=== PATIENT | male | born 1955 | race Caucasian/White ===

== ENCOUNTER → 2016-09-18 | Outpatient (CLI) | payer MEDICARE, OTHER ==
[~2016-09-18] MED LIST: AMOX500C2 PO; ASCO100T6 PO; ASP325T PO; ASP81TEC PO; ATOR80TA PO; B POLLEN; BEE POLLEN PO; BEE550CA PO; CALC-650 PO; CATHETER FLUSH 10 ML SYR IV PRN; CHOL200035 PO; CINN500C2 PO; CLOP75TA PO; Cinnamon PO; FURO20TA4 PO; GARL10002 PO; GARL200T PO; GINK120C PO; GINK60CA13 PO; Garlic PO; LOSA50TA6 PO; MTP25TSR PO; MULT-608; MULT-974 PO; MULT1CAP27 PO; NF-METANX PO; NF-VAL40T PO; OMEG1CAP51 PO; PANT40SU PO; PANT40TA PO; PNT40TEC; PNT40TEC PO; POTA2TAB15 PO; POTA75TA; POTA99TA4 PO; PRD20T PO; REGADENOSON 0.4 MG/5 ML SYR (LEXISCAN) IV ONE; RIVA20TA2 PO; ROSU10TA12 PO; SILD25TA; SOLI5TAB4 PO; SUPER B PO; TADA2.5T PO; TERB250T PO; VENL150C PO; VENL150C53 PO; VIT E PO; VITA100C15 PO; VITA100T6 PO; VITA150T PO; VITA80006 PO; Vitamin A PO; Vitamin C PO; Vitamin E PO; ZINC15TA2 PO; [UNRECOGNIZED DRUG - CODE]; calcium; cinnamon; vitamin a PO
[2016-09-18 09:23] VITALS: BP 137/87
--- NOTE | 2016-09-19 09:48 | STRESS TEST ---
PROCEDURE PHYSICIAN: FROILAN WORTHY EXERCISE MYOVIEW STRESS TEST REPORT DATE OF PROCEDURE: 09/18/2016 REFERRING PHYSICIAN: Dr. Arvin Landis INDICATION: Congestive heart failure. Baseline heart rate is 105, baseline blood pressure: 140/82. Baseline EKG: Sinus rhythm with no ischemic changes. SUMMARY: The patient was injected with 10.51 mCi of technetium 99 Myoview and the resting images were obtained. Then the patient started exercising with a baseline heart rate, blood pressure, EKG mentioned above. At minute 5 and 30 seconds, the patient was injected with 31.5 mCi of technetium 99 Myoview. The patient was able to finish a total of 6 minutes 30 seconds on standard Chuck protocol, achieving maximum heart rate of 152, which is 95% of maximum expected heart rate. At the peak exercise level, blood pressure was 182/66, EKG with very minimal nondiagnostic changes. During recovery, heart rate and blood pressure returned to baseline. EKG returned to baseline. The resting and stress images were reviewed and compared in the short axis, horizontal long axis, and vertical long axis views. Review of the images showed fixed defect involving the mid to apical anterior wall, anterior septum, true apex. SSS 27, SDS 0, TID value 0.96. On the gated images, the left ventricle appeared to be dilated with hypokinesia at the anterior wall, anterior apex, true apex, anterolateral wall. Calculated ejection fraction 40%. CONCLUSION: 1. Fair exercise tolerance a total of 6 minutes 30 seconds on standard Chuck protocol. Total 7 METs, achieving 95% of maximum expected heart rate. 2. Appropriate heart rate and blood pressure response to exercise. Returned to baseline during recovery. 3. Total infarction of the mid to apical anterior wall, true apex. No significant ischemia was noted. 4. Normal left ventricular size with hypokinesia at the anterior wall. Calculated ejection fraction 40%. Job ID: [id number] Dictated Date: 09/19/2016 08:07:36 Supervisor [employer] Date: 09/19/2016 09:43:12 / john
== END ==
LOC: CARD 08:10
PROVIDERS: ATTEND Physician Assistant
DX: I50.22 Chronic systolic (congestive) heart failure (principal); I25.10 Atherosclerotic heart disease of native coronary artery without angina pectoris; I10 Essential (primary) hypertension; E78.2 Mixed hyperlipidemia
CPT/HCPCS: 78452; 93017

== ENCOUNTER → 2016-09-27 | Outpatient (CLI) | payer MEDICARE, OTHER ==
[~2016-09-27] MED LIST changes: -CATHETER FLUSH 10 ML SYR IV PRN; -REGADENOSON 0.4 MG/5 ML SYR (LEXISCAN) IV ONE
--- OUTSIDE RECORDS SUMMARY | 2016-09-27 12:11 | XMS REPORT | Continuity of Care Document ---
Author Author [facility] Organization [facility] Address Unknown Phone Unavailable Allergies Active Description Code Type Severity Reaction Onset Reported/Identified Relationship to Patient Clinical Status Yes NKANo Known Allergies NKA Miscellaneous Allergy Unknown N/ A 08/05/2015 Medications Problems Date Dx Coded Attending Type Code Diagnosis Diagnosed By 03/03/2010 Ot 530.11 03/03/2010 Ot 553.3 03/03/2010 Ot 562.10 03/18/2011 Ot 327.23 03/18/2011 Ot 414.01 01/08/2013 FROILAN WORTHY MD Ot 272.4 01/08/2013 FROILAN WORTHY MD Ot 278.00 01/08/2013 FROILAN WORTHY MD Ot 288.60 01/08/2013 FROILAN WORTHY MD Ot 401.9 01/08/2013 FROILAN WORTHY MD Ot 412 01/08/2013 FROILAN WORTHY MD Ot 414.01 01/08/2013 FROILAN WORTHY MD Ot 428.0 01/08/2013 FROILAN WORTHY MD Ot 428.22 01/08/2013 FROILAN WORTHY MD Ot 433.10 01/08/2013 FROILAN WORTHY MD Ot 433.30 01/08/2013 FROILAN WORTHY MD Ot 780.4 01/08/2013 FROILAN WORTHY MD Ot 784.0 01/08/2013 FROILAN WORTHY MD Ot 786.50 01/08/2013 FROILAN WORTHY MD Ot V03.82 01/08/2013 FROILAN WORTHY MD Ot V45.82 01/08/2013 FROILAN WORTHY MD Ot V85.42 07/03/2013 GLENNA RODRIGUEZ, SHUBHAM Ot 785.6 10/01/2013 FROILAN WORTHY MD Ot 278.01 10/01/2013 FROILAN WORTHY MD Ot 327.23 10/01/2013 FROILAN WORTHY MD Ot 397.0 10/01/2013 DEACON RODRIGUEZ, BASHAR J Ot 412 10/01/2013 DEACON RODRIGUEZ, BASHAR J Ot 414.01 10/01/2013 DEACON RODRIGUEZ, BASHAR J Ot 424.0 10/01/2013 DEACON RODRIGUEZ, BASHAR J Ot 428.0 10/01/2013 DEACON RODRIGUEZ, BASHAR J Ot 428.22 10/01/2013 DEACON RODRIGUEZ, BASHAR J Ot 784.0 10/01/2013 DEACON RODRIGUEZ, BASHAR J Ot 786.50 10/01/2013 DEACON RODRIGUEZ, BASHAR J Ot V12.51 10/01/2013 DEACON RODRIGUEZ, BASHAR J Ot V13.01 10/01/2013 DEACON RODRIGUEZ, FROILAN J Ot V17.3 10/01/2013 DEACON RODRIGUEZ, FROILAN Curry Ot V45.82 10/01/2013 DEACON RODRIGUEZ, FROILAN Curry Ot V58.61 10/01/2013 DEACON RODRIGUEZ, FROILAN Curry Ot V58.69 10/01/2013 DEACON RODRIGUEZ, FROILAN Curry Ot V85.43 10/12/2013 HARDEEP MANZANARES MDSELENA Ot 571.8 10/12/2013 GLENNA RODRIGUEZ [facility] Ot 785.6 10/12/2013 HARDEEP MANZANARES MDSELENA Ot V12.55 10/15/2013 DEACON RODRIGUEZ, FROILAN Curry Ot 272.4 10/15/2013 DEACON RODRIGUEZ, FROILAN Curry Ot 278.00 10/15/2013 DEACON RODRIGUEZ, FROILAN J Ot 401.9 10/15/2013 DEACON RODRIGUEZ, BASHAR J Ot 412 10/15/2013 DEACON RODRIGUEZ, BASHAR J Ot 414.01 10/15/2013 DEACON RODRIGUEZ, BASHAR J Ot 496 10/15/2013 DEACON RODRIGUEZ, ROBERTHAR J Ot 786.50 10/15/2013 DEACON RODRIGUEZ, FROILAN J Ot V12.51 10/15/2013 DEACON RODRIGUEZ, ROBERTHAR J Ot V15.82 10/15/2013 DEACON RODRIGUEZ, BASHAR J Ot V45.82 10/15/2013 EDACON RODRIGUEZ, ROBERTHAR J Ot V58.61 10/15/2013 DEACON RODRIGUEZ, ROBERTHAR J Ot V58.69 10/15/2013 DEACON RODRIGUEZ, BASHAR J Ot V85.43 01/27/2014 [facility] 278.01 01/27/2014 GLENNA RODRIGUEZ, [facility] Ot 414.00 01/27/2014 GLENNA RODRIGUEZ, [facility] Ot 571.8 01/27/2014 GLENNA RODRIGUEZ, [facility] Ot 785.6 01/27/2014 GLENNA RODRIGUEZ, [facility] Ot V12.55 01/27/2014 GLENNA RODRIGUEZ, [facility] Ot V58.69 01/27/2014 GLENNA RODRIGUEZ, [facility] Ot V85.43 05/26/2015 Ot 414.00 05/26/2015 Ot 428.0 05/26/2015 Ot 414.00 05/26/2015 Ot 428.0 05/26/2015 Ot 428.0 05/26/2015 Ot 401.9 05/26/2015 Ot 414.00 05/26/2015 Ot 428.0 05/26/2015 Ot 401.9 05/26/2015 Ot 414.00 05/26/2015 Ot 428.0 05/26/2015 GLENNA RODRIGUEZ, [facility] Ot 571.8 05/26/2015 GLENNA RODRIGUEZ, [facility] Ot 785.6 05/26/2015 GLENNA RODRIGUEZ, [facility] Ot V12.55 05/26/2015 Ot 278.01 05/26/2015 Ot 414.00 05/26/2015 Ot 571.8 05/26/2015 Ot 785.6 05/26/2015 Ot V12.55 05/26/2015 Ot V58.69 05/26/2015 Ot V85.43 06/16/2015 FROILAN WORTHY MD Ot E78.5 06/16/2015 DEACON RODRIGUEZ, FROILAN Curry Ot I10 06/16/2015 FROILAN WORTHY MD Ot I50.9 06/16/2015 FROILAN WORTHY MD Ot R06.02 08/05/2015 RAFIQ AUGUSTINE DO Ot K62.5 09/19/2016 VIET HENRY Ot E78.2 MIXED HYPERLIPIDEMIA 09/19/2016 VEIT HENRY Ot I10 ESSENTIAL (PRIMARY) HYPERTENSION 09/19/2016 VIET HENRY Ot I25.10 ATHSCL HEART DISEASE OF [place] CORONARY 09/19/2016 VIET HENRY Ot I50.22 CHRONIC SYSTOLIC (CONGESTIVE) HEART FAIL Procedures Results Encounters ACCT No. Visit Date/Time Discharge Status Pt. Type Provider Facility Loc./Unit Complaint [id number] 08/05/2015 11:58:00 2014 15:40:00 DIS Outpatient RAFIQ AUGUSTINE DO [facility] SDC [id number] 05/26/2015 09:43:00 2014 23:59:59 CLS Outpatient FROILAN WORTHY MD [facility] CARD [id number] 10/29/2013 13:07:00 2013 00:01:00 DIS Outpatient SHUBHAM MANZANARES MD [facility] ONC [id number] 10/15/2013 08:07:00 2013 15:10:00 DIS Outpatient FROILAN WORTHY MD [facility] CATH [id number] 09/29/2013 09:30:00 2013 00:01:00 DIS Outpatient SHUBHAM MANZANARES MD [facility] ONC [id number] 09/29/2013 13:40:00 2013 15:10:00 DIS Outpatient FROILAN WORTHY MD [facility] CATH [id number] 05/13/2013 13:23:00 2012 00:01:00 DIS Outpatient SHUBHAM MANZANARES MD [facility] ONC [id number] 05/09/2013 08:44:00 2012 23:59:59 CLS Outpatient SHUBHAM MANZANARES MD [facility] RAD [id number] 01/07/2013 19:15:00 2012 18:50:00 DIS Inpatient FROILAN WORTHY MD [facility] 4TH [id number] 09/18/2016 08:10:00 ACT Outpatient VIET CALLES [facility] CARD HTN,CHF [id number] 08/03/2015 05:42:00 ACT Outpatient RAFIQ AUGUSTINE DO [facility] PREOP [id number] 01/28/2014 00:00:00 Document Registration [id number] 06/19/2012 07:40:00 Document Registration [id number] 06/18/2012 08:35:00 Document Registration [id number] 03/21/2011 13:29:00 Document Registration [id number] 03/17/2011 21:00:00 Document Registration [id number] 01/23/2011 07:24:00 Document Registration [id number] 06/24/2010 09:31:00 Document Registration [id number] 03/03/2010 07:35:00 Document Registration
--- NOTE | 2016-09-27 16:49 | Diagnostic Imaging Report ---
INDICATION: Irritability, history of blood clots and myocardial infarct. FINDINGS: The heart size within the upper limits of normal. There is no vascular congestion. No edema, pneumonia, effusion or pneumothorax. Hilar and mediastinal contours stable. No acute finding. IMPRESSION: Stable chronic findings. No acute abnormality. Dictated by: Dictated on workstation # [id number]
== END ==
LOC: RAD 12:08
PROVIDERS: ATTEND Internal Medicine Critical Care Medicine
DX: R06.02 Shortness of breath (principal); G47.33 Obstructive sleep apnea (adult) (pediatric); E66.01 Morbid (severe) obesity due to excess calories
CPT/HCPCS: 71020

== ENCOUNTER → 2016-10-04 | Outpatient (CLI) | payer MEDICARE, OTHER | LOC: RT 12:58 | PROVIDERS: ATTEND Internal Medicine Critical Care Medicine | DX: R06.02 Shortness of breath (principal); G47.33 Obstructive sleep apnea (adult) (pediatric); E66.01 Morbid (severe) obesity due to excess calories | CPT/HCPCS: 94060; 94726; 94729 ==

== ENCOUNTER 2016-11-14 20:45 | Outpatient (CLI) | payer MEDICARE, OTHER | END 2016-11-15 06:50 | disposition home or self-care (01) | LOC: SLEEP 20:45 | PROVIDERS: ATTEND Nurse Practitioner Family | DX: G47.33 Obstructive sleep apnea (adult) (pediatric) (principal) | CPT/HCPCS: 95811 ==

== ENCOUNTER → 2017-01-12 | Outpatient (CLI) | payer MEDICARE, OTHER | LOC: CARD 09:27 | PROVIDERS: ATTEND Internal Medicine Cardiovascular Disease | DX: I49.8 Other specified cardiac arrhythmias (principal); I25.10 Atherosclerotic heart disease of native coronary artery without angina pectoris; I10 Essential (primary) hypertension; E78.2 Mixed hyperlipidemia; R00.2 Palpitations | CPT/HCPCS: 93225; 93226 ==

== ENCOUNTER 2017-02-01 20:45 | Outpatient (CLI) | payer MEDICARE, OTHER | END 2017-02-02 06:21 | disposition home or self-care (01) | LOC: SLEEP 20:45 | PROVIDERS: ATTEND Nurse Practitioner Family | DX: G47.10 Hypersomnia, unspecified (principal); G47.33 Obstructive sleep apnea (adult) (pediatric); E66.01 Morbid (severe) obesity due to excess calories; I21.3 ST elevation (STEMI) myocardial infarction of unspecified site; R00.2 Palpitations; G47.50 Parasomnia, unspecified | CPT/HCPCS: 95811 ==

== ENCOUNTER → 2019-06-09 | Outpatient (CLI) | payer MEDICARE, OTHER | LOC: CARD 09:22 | PROVIDERS: ATTEND Physician Assistant | DX: I07.1 Rheumatic tricuspid insufficiency (principal); I11.0 Hypertensive heart disease with heart failure; I50.9 Heart failure, unspecified; I25.10 Atherosclerotic heart disease of native coronary artery without angina pectoris | CPT/HCPCS: 93306 ==

== ENCOUNTER → 2019-06-11 | Outpatient (CLI) | payer MEDICARE, OTHER ==
[~2019-06-11] VITALS: Ht 178 cm; Wt 170.0 kg
[~2019-06-11] MED LIST changes: +CATHETER FLUSH 10 ML SYR IV PRN
[2019-06-11 09:51] VITALS: BP 124/87
[2019-06-11 10:03] VITALS: BP 156/98
--- NOTE | 2019-06-11 21:31 | STRESS TEST ---
DATE OF SERVICE: 06/11/2019 EXERCISE MYOVIEW STRESS TEST Baseline heart rate is 64. Baseline blood pressure is 124/87. Baseline EKG is sinus rhythm with no ischemic changes. In summary, the patient was injected with 10.11 mCi of technetium-99 Myoview and the resting images were obtained. Then, the patient started exercising with a baseline heart rate, blood pressure and EKG mentioned above, was able to exercise for 5 minutes 30 seconds on standard Chuck protocol. With peak exercise level, blood pressure was 184/94. EKG was showing nondiagnostic changes. During recovery, heart rate and blood pressure returned to baseline, EKG returned to baseline. The resting and stress images were reviewed and compared in the short axis, horizontal long axis, and vertical long axis views. Review of the images showed total infarction of the mid to apical anterior wall, true apex and inferoapical segment. SSS is 23, SDS 1, TID value 1.08. On the gated images, the left ventricle is normal in size with aneurysmal apex. Calculated ejection fraction 38%. CONCLUSION: 1. Fair exercise tolerance for a total of 5 minutes 30 seconds on standard Chuck protocol, total of 7.1 METS achieving 85% of maximum expected heart rate. 2. Nondiagnostic EKG changes with exercise returned to baseline during recovery. 3. Total infarction of the whole mid to apical anterior wall, true apex and inferoapical segment. 4. Normal left ventricular size with dyskinesia of the apex. Calculated ejection fraction 38%. Job ID: [id number] DocumentID: [id number] Dictated Date: 06/11/2019 16:12:21 Structural Steel Trades Worker Date: 06/11/2019 21:30:50 Dictated By: FROILAN WORTHY MD
== END ==
LOC: CARD 08:18
PROVIDERS: ATTEND Physician Assistant
DX: I21.9 Acute myocardial infarction, unspecified (principal); I11.0 Hypertensive heart disease with heart failure; I50.9 Heart failure, unspecified; I25.10 Atherosclerotic heart disease of native coronary artery without angina pectoris
CPT/HCPCS: 78452; 93017

== ENCOUNTER → 2020-03-23 | Outpatient (CLI) | payer MEDICARE, OTHER ==
[~2020-03-23] MED LIST changes: -CATHETER FLUSH 10 ML SYR IV PRN
== END ==
LOC: RAD 07:35
PROVIDERS: ATTEND Family Medicine
DX: Z53.9 Procedure and treatment not carried out, unspecified reason (principal); I63.9 Cerebral infarction, unspecified

== ENCOUNTER → 2021-05-30 | Outpatient (CLI) | payer MEDICARE, OTHER ==
[~2021-05-30] VITALS: Ht 173 cm; Wt 168.0 kg
[~2021-05-30] MED LIST changes: +REGADENOSON 0.4 MG/5 ML SYR (LEXISCAN) IV ONE
[2021-05-30] MEDS: CATHETER FLUSH 10 ML SYR IV PRN ×2 (08:35→10:00)
[2021-05-30 09:58] VITALS: BP 118/61
--- NOTE | 2021-05-30 12:57 | Cardiology Stress Test Report ---
Stress Test Report Date of Procedure/Referring: Date of Procedure: May 30, 2021 PCP Froilan Baker MD Admitting Physician Arvin Landis DO Indications: CHF Baseline Heart Rate: 52 Baseline Blood Pressure: Blood Pressure Systolic: 118 Blood Pressure Diastolic: 61 Baseline Vitals Vital Signs Date Time Temp Pulse Resp B/P (MAP) Pulse Ox O2 Delivery O2 Flow Rate FiO2 05/30/21 09:58 51 16 118/61 (80) 97 Room Air Baseline EKG: Baseline EKG: NSR Summary After explaining the procedure to the patient, he signed a consent and then brought to the stress nuclear laboratory. Patient received 0.4 mg Lexiscan for stress test, ECG, heart rate and blood pressure were monitored continuously. Resting and stress dose of radio tracer were injected, imaging was acquired and reviewed in short axis, horizontal long axis and vertical long axis views. TID: 1.02 SSS: 21 SDS: 0 EF: 35 1. Patient tolerated Lexiscan well 2. Baseline sinus bradycardia persisted during test 3. Fixed defect involving the mid to apical anterior wall true apex and inferoapical segment 4. Prominent left ventricle with akinesia of the mid to apical anterior wall true apex and inferoapical segment with ejection fraction 35% FROILAN BAKER MD May 30, 2021 12:57
== END ==
LOC: CARD 08:45
PROVIDERS: ATTEND Internal Medicine Cardiovascular Disease
DX: I50.9 Heart failure, unspecified (principal)
CPT/HCPCS: 78452; 93017; A9502

== ENCOUNTER 2021-06-15 12:01 | Day surgery (SDC) | payer MEDICARE, OTHER ==
[~2021-06-15] VITALS: Ht 178 cm; Wt 169.0 kg
[~2021-06-15 12:01] MED LIST changes: -REGADENOSON 0.4 MG/5 ML SYR (LEXISCAN) IV ONE
[2021-06-15 12:50] LABS: HEMATOCRIT 42 % (40-54); HEMOGLOBIN 13.8 g/dL (13.3-17.7); MEAN CORPUSCULAR HEMOGLOBIN 32 pg (25-34); MEAN CORPUSCULAR HGB CONC 33 g/dL (32-36); MEAN CORPUSCULAR VOLUME 97 fL (80-99); MEAN PLATELET VOLUME 11.6 fL (9.0-12.2); PLATELET COUNT 242 10^3/uL (130-400); WHITE BLOOD COUNT 7.9 10^3/uL (4.3-11.0)
[2021-06-15 12:51] LABS: BILIRUBIN,URINE NEGATIVE (NEGATIVE); CLARITY,URINE CLEAR; COLOR,URINE YELLOW; GLUCOSE, URINE (UA) NEGATIVE (NEGATIVE); KETONES,URINE NEGATIVE (NEGATIVE); LEUKOCYTE ESTERASE ,URINE NEGATIVE (NEGATIVE); NITRITE,URINE NEGATIVE (NEGATIVE); PH,URINE 6.5 (5-9); PROTEIN,URINE NEGATIVE (NEGATIVE)
[2021-06-15 12:52] VITALS: BP 134/70
[2021-06-15] MEDS: NS IV 1000 ML 1,000 ML IV SCH ×2 (12:55→16:19)
[2021-06-15 13:00] LABS: ALBUMIN 4.1 GM/DL (3.2-4.5); POTASSIUM 4.3 MMOL/L (3.6-5.0)
[2021-06-15 13:01] LABS: CALCIUM 10.1 MG/DL (8.5-10.1)
[2021-06-15 13:02] LABS: INR 1.1 (0.8-1.4); PROTHROMBIN TIME PATIENT 14.1 SEC (12.2-14.7)
[2021-06-15 13:03] LABS: TOTAL PROTEIN 7.4 GM/DL (6.4-8.2)
--- NOTE | 2021-06-15 13:03 | Diagnostic Imaging Report ---
EXAMINATION: Chest, 1 view. HISTORY: Abn stress. COMPARISON: None available. FINDINGS: The heart size and pulmonary vasculature are stable. There are mild interstitial opacities in the lung bases. No pleural effusion or pneumothorax. The osseous structures are intact. IMPRESSION: Mild interstitial opacities in the lung bases which could represent atelectasis although atypical infection or pulmonary edema could have a similar appearance. Dictated by: Dictated on workstation # [id number]
[2021-06-15 13:04] LABS: BILIRUBIN,TOTAL 0.6 MG/DL (0.1-1.0)
[2021-06-15 13:06] LABS: CREATININE SERUM 1.06 MG/DL (0.60-1.30)
[2021-06-15 13:12] LABS: BACTERIA,URINE NEGATIVE /HPF; WBC,URINE RARE /HPF
[2021-06-15] MEDS ORDERED: NS IV 1000 ML 1,000 ML ONE (13:12)
[2021-06-15] MEDS ORDERED: LIDOCAINE 1% INJ 20 ML 20 ML VIAL ONE (13:12)
[2021-06-15] MEDS ORDERED: HEParin (CATH LAB) 2,000 ML IV ONE (13:12)
[2021-06-15] MEDS ORDERED: MIDAZOLAM 5 MG/5 ML (VERSED) VIAL ONE (13:22)
[2021-06-15] MEDS ORDERED: fentaNYL INJ 100 MCG/2 ML AMP ONE (13:22)
[2021-06-15] MEDS ORDERED: VERAPAMIL 5 MG/2 ML (CALAN) VIAL IV ONE (13:35)
[2021-06-15] MEDS ORDERED: HEParin 1000 UNIT/ML (10ML VIAL) FOR BOLUS ONE (13:35)
--- NOTE | 2021-06-15 13:35 | Conscious Sedation/ASA ---
Conscious Sedation Pre-Proced Time 13:35 ASA Score 3 For ASA 3 and 4: Consider anesthesia and medical clearance. Also, for patients with a history of failed moderate sedation consider anesthesia. Airway Lungs Heart ASA score ASA 1: a normal healthy patient ASA 2: a patient with a mild systemic disease (mid diabetes, controlled hypertension, obesity x ASA 3: a patient with a severe systemic disease that limits activity (angina, COPD, prior Myocardial infarction) ASA 4: a patient with an incapacitating disease that is a constant threat to life (CHF, renal failure) ASA 5: a moribund patient not expected to survive 24 hrs. (ruptured aneurysm) ASA 6: a declared brain- patient whose organs are being harvested. For emergent operations, add the letter E after the classification Mallampati Classification Grade 3 Sedation Plan Analgesia, Amnesia, Plan communicated to team members, Discussed options with patient/fam, Discussed risks with patient/fam The patient is an appropriate candidate to undergo the planned procedure, sedation, and anesthesia. The patient immediately re-assessed prior to indication. FROILAN WORTHY MD Jun 15, 2021 13:35
[2021-06-15] MEDS ORDERED: NITRO DRIP 25000 MCG/D5W 250 ML IV ONE (13:36)
[2021-06-15] MEDS ORDERED: MULT-166 PO (13:44)
[2021-06-15] MEDS ORDERED: ATOR40TA70 PO (13:44)
[2021-06-15] MEDS ORDERED: FISH1CAP15 PO (13:44)
[2021-06-15] MEDS ORDERED: LOSA100T57 PO (13:44)
[2021-06-15] MEDS ORDERED: CALC-64 PO (13:44)
[2021-06-15] MEDS ORDERED: GARL1TAB2 PO (13:44)
[2021-06-15] MEDS ORDERED: CLOP75TA28 PO (13:44)
[2021-06-15] MEDS ORDERED: SERT-413 PO (13:44)
[2021-06-15] MEDS ORDERED: VITA400C64 PO (13:44)
[2021-06-15] MEDS ORDERED: POTA99TA17 PO (13:44)
[2021-06-15] MEDS ORDERED: VITA-189 PO (13:44)
[2021-06-15] MEDS ORDERED: VITA80006 PO (13:44)
[2021-06-15] MEDS ORDERED: PANT40TA52 PO (13:44)
[2021-06-15] MEDS ORDERED: DOXY100C5 PO (13:44)
[2021-06-15] MEDS ORDERED: METO50TA7 PO (13:44)
[2021-06-15] MEDS ORDERED: ASPI-1238 PO (13:44)
[2021-06-15] MEDS ORDERED: CLOPIDOGREL 300 MG (PLAVIX) TABLET PO ONE (14:51)
[2021-06-15] MEDS ORDERED: ASPIRIN 325 MG (5 GR) TABLET ONE (14:51)
--- NOTE | 2021-06-15 14:56 | Cardiac Cath Report ---
Cardiac Cath Report Physician (s)/Underground Electrician (s) Physician FROILAN WORTHY MD Pre-Procedure Diagnosis Pre-Procedure Diagnosis: Coronary artery disease Post-Procedure Note Procedure Start Date: Jun 15, 2021 Name of Procedure: Left heart catheterization Stenting to the right coronary artery Stenting to the circumflex artery Findings/Procedure Note PROCEDURE NOTE: 65-year-old gentleman with history of coronary artery disease stent to the LAD. Has been having chest pain and palpitation, had an abnormal stress test, scheduled for cardiac catheterization possible PTCA. After explaining the procedure to the patient, all pros and cons were explained, all questions were answered. The patient signed the consent and then he was placed on the cardiac catheterization laboratory. Groin was prepped SL fashion local anesthesia was used. Sheath placed in the right radial artery, [place] catheter advanced to the left ventricular cavity, pressure was measured pullback LV to aorta was done, engaged the right and left coronary system. Patient was noted to have severe stenosis at 2 segments of the right coronary artery and at the ostial obtuse marginal branch. Given a total of 6000 units of heparin, FR guide was advanced to the right coronary system and BMW wire was parked distally, started with a Tana 3.5 x 18 mm deployed distally to 3.7 mm and overlapping with a proximal Tana 3.5 x 18 mm expanded to 3.77 under 16 jayla with excellent results. Guide was exchanged and used EBU 3.5 guide. Advanced to the left system, BMW wire was advanced to the circumflex artery and parked distally. Predilatation with 2.5 x 15 mm balloon then deployment of Tana 2.5 x 18 mm stent expanded to 2.6 mm with good results At the end of the procedure the sheath was removed. Closure device FINDINGS: Hemodynamics LV 113/16, end-diastolic pressure of 16 Aorta 113/78 mean of 93 ANATOMY: Left Main is free of obstructive disease Left Anterior Descending has patent stent proximally, moderate long segment stenosis at the midportion, borderline lesion Left Circumflex is moderate in size with severe ostial obtuse marginal branch artery stenosis with successful balloon angioplasty then stenting using Tana 2.5 x 15 mm with excellent results Right Coronary Artery is large dominant artery with severe stenosis at the mid and distal with successful deployment of 2 overlapping Tana stents both of them were 3.5 x 18 mm expanded proximally to 3.77 and distally to 3.7 mm LV Gram was not done, pressure was measured CONCLUSION: 1. Severe stenosis at 2 segments of the large dominant right coronary artery with successful deployment of 2 overlapping Tana stents 3.5 x 18 mm, each stent was postdilated the proximal one up to 3.77 and distal stent 3.7 mm 2. Severe ostial obtuse marginal artery stenosis, successful deployment of Tana 2.5 x 15 mm stent with excellent results 3. Patent stents in the LAD, long segment of moderate stenosis at the distal LAD borderline lesion 4. Normal left ventricular end-diastolic pressure DISCUSSION AND RECOMMENDATION: Continue to maximize medical therapy Anesthesia Type: Conscious Sedation Estimated blood loss (mL): 35 ml Contrast Amount: 163 ml Total Radiation Dose: 2492 mGy Post-Procedure Diagnosis Post-operative diagnosis: Chest pain Coronary artery disease Hypertension Hyperlipidemia FROILAN WORTHY MD Jun 15, 2021 14:56
[2021-06-15 15:27] VITALS: BP 133/70
[2021-06-15] MEDS ORDERED: ACETAMINOPHEN 325 MG TABLET PO PRN (16:30)
[2021-06-15 18:09] VITALS: BP 127/83
[2021-06-15 20:00] VITALS: BP 127/83
[2021-06-15] MEDS: DOXYCYCLINE 100 MG (VIBRAMYCIN) TABLET PO SCH (20:19)
[2021-06-15] MEDS: FISH OIL 2000 MG PO SCH (20:20)
[2021-06-16] VITALS: BP 122/73
[2021-06-16] MEDS: NS IV 1000 ML 1,000 ML IV SCH ×3 (00:20→08:50)
[2021-06-16 04:00] VITALS: BP 119/76
--- NOTE | 2021-06-16 06:59 | Discharge Inst-Post CATH ---
Discharge Inst-CATH/EP Problems Reviewed?: Yes Post Cardiac Cath/EP D/C Inst Follow Up/Plan Appointment with Dr Baker in 2-4 weeks <b>CARDIAC CATH/EP PROCEDURE DISCHARGE INSTRUCTIONS</b> ACTIVITY * Go Home directly and rest. * Limit activity of the leg (or wrist if it was used) for 7 days including aerobics, swimming, jogging, bicycling, etc. * Restrict stair-climbing for 7 days if possible, if not, climb up with your non-cath leg, then bring together on the same step. * Avoid lifting, pushing, pulling or excessive movement of the affected extremity for 7 days. * Customary sexual activity may be resumed after 2 days-use caution not to use a position that strains or causes pain to the affected extremity. * No driving for 24 hours. * NO SMOKING. * Avoid straining for bowel movements for 7 days. * Gentle walking on level ground is allowed. * Returning to work will depend on the type of procedure and the results. Your doctor will discuss this with you. CALL YOUR DOCTOR FOR ANY OF THE FOLLOWING: *If bleeding from the puncture site occurs- Apply gentle pressure to site with clean cloth and call your doctor or EMS. * If a knot or lump forms under the skin, increases in size, or causes pain. * If bruising appears to be worsening or moving further down your leg instead of disappearing. * Temperature above 101 F. CARE OF YOUR GROIN INCISION; * Bruising or purple discoloration of the skin near the puncture site is common. * You may shower only, no bathtub bathing for 5 days. Be careful to avoid slipping as your leg may feel stiff. * If a closure device was used on your femoral artery, please see the attached guide regarding care of the device and your leg. * Leave dressing on FOR 24 hours. CARE OF YOUR WRIST INCISION; * Bruising or purple discoloration of the skin near the puncture site is common. * You may shower. * DO NOT submerge wrist. * Leave dressing on FOR 24 hours. FROILAN BAKER MD Jun 16, 2021 06:59
[2021-06-16 08:13] VITALS: BP 122/73
[2021-06-16] MEDS: DOXYCYCLINE 100 MG (VIBRAMYCIN) TABLET PO SCH (08:16)
[2021-06-16] MEDS: FISH OIL 2000 MG PO SCH (08:20)
--- NOTE | 2021-06-16 08:57 | Cardiology Progress Note ---
Subjective Date Seen by Provider: Jun 16, 2021 Time Seen by Provider: 08:55 Subjective/Events-last exam Patient was seen at bedside, laying down comfortably, no chest pain no shortness of breath. Review of Systems General: No Chills, No Night Sweats, No Fatigue, No Malaise, No Appetite, No Other HEENT: No Head Aches, No Visual Changes, No Eye Pain, No Ear Pain, No D ysphasia, No Sinus Congestion, No Post Nasal Drip, No Sore Throat, No Other Pulmonary: No Dyspnea, No Cough, No Pleuritic Chest Pain, No Other Cardiovascular: No: Chest Pain, Palpitations, Orthopnea, Paroxysmal Noc. Dyspnea, Edema, Lt Headedness, Other Objective-Cardiology Exam Last Set of Vital Signs Vital Signs 06/16/21 08:13 Temp 36.2 Pulse 66 Resp 14 B/P (MAP) 122/73 (89) Pulse Ox 100 O2 Delivery Room Air I&O Intake and Output 06/16/21 00:00 Intake Total 75 ml Balance 75 ml Intake Oral 75 ml # Voids 3 Daily Weight Change Yes, 14-23 lbs General: Alert, Oriented X3, Cooperative HEENT: Atraumatic, PERRLA Neck: Supple, No JVD, No Thyromegaly Lungs: Clear to Auscultation, Normal Air Movement Heart: Regular Rate, Normal S1, Normal S2, No Murmurs Abdomen: Normal Bowel Sounds, Soft, No Tenderness, No Hepatosplenomegaly, No Masses Extremities: No Clubbing, No Cyanosis, No Edema, Normal Pulses, No Tenderness/Swelling Skin: No Rashes, No Breakdown, No Significant Lesion Neuro: Normal Gait, Normal Speech, Strength at 5/5 X4 Ext, Normal Tone, Sensation Intact Psych/Mental Status: Mental Status NL, Mood NL Results Lab Laboratory Tests 06/15/21 12:44 A/P-Cardiology Admission Diagnosis Chest pain Coronary artery disease Hypertension Hyperlipidemia Assessment/Plan Chest pain, palpitation, improved Coronary artery disease, complex anatomy with complex intervention as described below: 1. Severe stenosis at 2 segments of the large dominant right coronary artery with successful deployment of 2 overlapping Tana stents 3.5 x 18 mm, each stent was postdilated the proximal one up to 3.77 and distal stent 3.7 mm 2. Severe ostial obtuse marginal artery stenosis, successful deployment of Tana 2.5 x 15 mm stent with excellent results 3. Patent stents in the LAD, long segment of moderate stenosis at the distal LAD borderline lesion 4. Normal left ventricular end-diastolic pressure Hypertension, continue to monitor blood pressure Hyperlipidemia, continue Lipitor 40 mg FROILAN WORTHY MD Jun 16, 2021 08:57
[2021-06-16] MEDS ORDERED: meTOproloL SUCCINATE 50 MG (TOPROL XL) TAB PO SCH (09:00)
[2021-06-16] MEDS ORDERED: CLOPIDOGREL 75 MG (PLAVIX) TABLET PO SCH (09:00)
[2021-06-16] MEDS ORDERED: LOSARTAN 100 MG (COZAAR) TABLET PO SCH (09:00)
[2021-06-16] MEDS ORDERED: PANTOPRAZOLE 40 MG (PROTONIX) TAB PO SCH (09:00)
[2021-06-16] MEDS ORDERED: POTASSIUM GLUCONATE PO SCH (09:00)
[2021-06-16] MEDS ORDERED: SERTRALINE 50 MG (ZOLOFT) TABLET PO SCH (09:00)
[2021-06-16] MEDS ORDERED: ASPIRIN E.C. 81 MG (ECOTRIN) TAB PO SCH (09:00)
[2021-06-16] MEDS ORDERED: MULTIVIT W/MINERALS TAB (THERAGRAN M) PO SCH (09:00)
== END 2021-06-16 09:22 | disposition home or self-care (01) ==
LOC: CATH 12:01 → CSD 15:21 → CATH 06-16 09:22
PROVIDERS: ATTEND Internal Medicine Cardiovascular Disease
DX: I25.10 Atherosclerotic heart disease of native coronary artery without angina pectoris (principal); E78.5 Hyperlipidemia, unspecified; I11.0 Hypertensive heart disease with heart failure; I50.22 Chronic systolic (congestive) heart failure; E78.2 Mixed hyperlipidemia; G47.33 Obstructive sleep apnea (adult) (pediatric); H91.90 Unspecified hearing loss, unspecified ear; I65.23 Occlusion and stenosis of bilateral carotid arteries; F32.A Depression, unspecified; E66.9 Obesity, unspecified; Z68.43 Body mass index [BMI] 50.0-59.9, adult; I25.2 Old myocardial infarction; Z79.899 Other long term (current) drug therapy; Z79.82 Long term (current) use of aspirin; Z95.5 Presence of coronary angioplasty implant and graft; Z86.711 Personal history of pulmonary embolism; Z87.891 Personal history of nicotine dependence; Z82.49 Family history of ischemic heart disease and other diseases of the circulatory system
CPT/HCPCS: 71045; 80053; 80061; 81000; 85027; 85610; 85730; 87081; 93458; C1725; C1769; C1874 ×2; C1887 ×2; C1894; C9600; C9601; 36415

== ENCOUNTER → 2021-09-30 | Outpatient (CLI) | payer MEDICARE, OTHER ==
[~2021-09-30] MED LIST changes: +ASPI-1238 PO; +ATOR40TA70 PO; +CALC-64 PO; +CLOP75TA28 PO; +DOXY100C5 PO; +FISH1CAP15 PO; +GARL1TAB2 PO; +LOSA100T57 PO; +METO50TA7 PO; +MULT-166 PO; +PANT40TA52 PO; +POTA99TA17 PO; +SERT-413 PO; +VITA-189 PO; +VITA400C64 PO
== END ==
LOC: CARD 09:00
PROVIDERS: ATTEND Internal Medicine Cardiovascular Disease
DX: I11.9 Hypertensive heart disease without heart failure (principal); I34.0 Nonrheumatic mitral (valve) insufficiency
CPT/HCPCS: 93306

== ENCOUNTER → 2023-05-10 | Outpatient (CLI) | payer MEDICARE, OTHER ==
[~2023-05-10] MED LIST changes: -LOSA100T57 PO; +LOSA100T58 PO; +VITA80009 PO
== END ==
LOC: CARD 12:46
PROVIDERS: ATTEND Internal Medicine Cardiovascular Disease
DX: I10 Essential (primary) hypertension (principal)
CPT/HCPCS: 93306

== ENCOUNTER → 2023-06-13 | Outpatient (CLI) | payer MEDICARE, OTHER ==
[~2023-06-13] MED LIST changes: +CATHETER FLUSH 10 ML SYR IVP PRN; +REGADENOSON 0.4 MG/5 ML SYR IV ONE
[2023-06-13 09:18] VITALS: BP 160/101
--- NOTE | 2023-06-13 15:55 | Cardiology Stress Test Report ---
Stress Test Report Date of Procedure/Referring: Date of Procedure: Jun 13, 2023 PCP Arvin Landis DO Admitting Physician Admitting Physician: Attending Physician: Lynda Baker MD Baseline Heart Rate: 54 Baseline Blood Pressure: Blood Pressure Systolic: 160 Blood Pressure Diastolic: 101 Baseline Vitals Vital Signs Date Time Temp Pulse Resp B/P (MAP) Pulse Ox O2 Delivery O2 Flow Rate FiO2 06/13/23 09:18 54 160/101 (120) 96 Baseline EKG: Baseline EKG: NSR Summary After explaining the procedure to the patient, he signed a consent and then brought to the stress nuclear laboratory. Patient received 0.4 mg Lexiscan for stress test, ECG, heart rate and blood pressure were monitored continuously. Resting and stress dose of radio tracer were injected, imaging was acquired and reviewed in short axis, horizontal long axis and vertical long axis views. TID: 1 SSS: 29 SDS: 3 EF: 35 Patient tolerated Lexiscan well Fixed defect involving the mid to apical anterior wall apex and inferior and inferior apical segment with no significant reversibility Dilated left ventricle with diffuse hypokinesia, akinesia of the apex, ejection fraction 35% Copy Copies To 1: ARVIN LANDIS BASHAR J MD Jun 13, 2023 15:55
== END ==
LOC: CARD 07:42
PROVIDERS: ATTEND Internal Medicine Cardiovascular Disease
DX: I25.10 Atherosclerotic heart disease of native coronary artery without angina pectoris (principal); I10 Essential (primary) hypertension
CPT/HCPCS: 78452; 93017; A9502